=== PATIENT | male | born 1935 | race Caucasian/White ===

== ENCOUNTER 2018-09-23 09:36 | Outpatient (CLI) | payer MEDICARE, SELFPAY ==
--- NOTE | 2018-09-23 09:27 | DI.RAD_ITS ---
SYMPTOM/DIAGNOSIS: KNEE AND SHOULDER PAIN RIGHT SHOULDER: Two views. Comparison is made with 01/21/17. At the glenohumeral joint, there does appear to be narrowing and periarticular spurring present. There are moderate hypertrophic changes seen at the acromioclavicular joint. The bones are intact. No acute fracture or dislocation is seen. There is a tiny osseous density adjacent to the greater tuberosity which may reflect calcific tendinitis. IMPRESSION: Stable, moderately severe degenerative changes of the right shoulder. LEFT KNEE: Two views. Comparison is made with 01/21/17. There is marked narrowing again seen of the medial femorotibial joint space. Periarticular spurring is seen involving all three joint compartments. There is chondrocalcinosis present. The bones are intact. There is a small suprapatellar joint effusion. Vascular calcifications are present in the soft tissues. IMPRESSION: Stable severe osteoarthritis of the left knee. LEFT SHOULDER: Two views. Comparison is made with 01/21/17. At the glenohumeral joint, there is joint space narrowing, sclerosis and spurring present. There is a well corticated osseous density again seen adjacent to the inferior glenohumeral joint. A second well circumscribed density is also seen adjacent to the superior glenohumeral joint which is unchanged. Post surgical changes with resection of the distal clavicle are again noted. No acute fracture or dislocation is seen. The lungs appear stable compared to the prior examination. IMPRESSION: Stable severe degenerative changes of the left shoulder.
== END 2018-09-23 09:56 ==
PROVIDERS: PCP Family Medicine; Referring Provider Family Medicine; Visit Provider Orthopaedic Surgery
DX: M19.011 Primary osteoarthritis, right shoulder; M25.562 Pain in left knee; M17.12 Unilateral primary osteoarthritis, left knee; M19.012 Primary osteoarthritis, left shoulder; I10 Essential (primary) hypertension; E11.9 Type 2 diabetes mellitus without complications; M25.511 Pain in right shoulder; M25.512 Pain in left shoulder
CPT/HCPCS: 20610; 99213; 99214; 73030; 73560; J1040

== ENCOUNTER 2019-12-13 08:15 | Outpatient (CLI) | payer MEDICARE, SELFPAY ==
--- NOTE | 2019-12-13 08:00 | DI.RAD_ITS ---
EXAM: XR KNEE LT 1V CLINICAL HISTORY: eval L knee DJD, preTKA TECHNIQUE: 2D digital imaging was performed. COMPARISON: CR XR knee LT 2V AP,lat from 09/23/2018 CR XR STANDING ALIGNMENT from 12/13/2019 FINDINGS: There is severe narrowing of the left medial femoral tibial joint with varus angulation. A right kne e prosthesis is seen. There is acetabular spurring bilaterally. The joint spaces are well maintaine d. There is a mild leg length discrepancy with the right femoral head projecting superior to the lef t. Ankle joint spaces are well maintained. There is an exostosis of the distal fibula at the distal tibio fibular joint. Vascular calcifications are present. Vascular clips are seen in the medial so ft tissues of the right knee. IMPRESSION: Severe degenerative changes of the medial femoral tibial joint of left knee and mild leg length discr epancy.
== END 2019-12-13 08:35 ==
PROVIDERS: PCP Family Medicine; Referring Provider Family Medicine; Visit Provider Student in an Organized Health Care Education/Training Program
DX: M17.12 Unilateral primary osteoarthritis, left knee (principal); G56.01 Carpal tunnel syndrome, right upper limb; G56.02 Carpal tunnel syndrome, left upper limb; M70.62 Trochanteric bursitis, left hip; Z95.1 Presence of aortocoronary bypass graft
CPT/HCPCS: 99204; 99215; 73560; 77073

== ENCOUNTER → 2019-12-14 13:48 | Outpatient (BNVA) | payer MEDICARE, SELFPAY | PROVIDERS: PCP Family Medicine; Referring Provider Family Medicine; Visit Provider Nurse Practitioner Adult Health | DX: G56.03 Carpal tunnel syndrome, bilateral upper limbs (principal); G56.23 Lesion of ulnar nerve, bilateral upper limbs | CPT/HCPCS: 95910; 99203; 99214 ==

== ENCOUNTER 2020-01-07 07:40 | Outpatient (CLI) | payer MEDICARE, SELFPAY ==
[2020-01-09 18:27] LABS: COVID-19 RT-PCR Result Negative ((See Note))
== END 2020-01-07 08:00 ==
PROVIDERS: PCP Family Medicine; Visit Provider Student in an Organized Health Care Education/Training Program
DX: Z11.59 Encounter for screening for other viral diseases (principal); Z01.818 Encounter for other preprocedural examination
CPT/HCPCS: U0003

== ENCOUNTER → 2020-01-12 08:17 | Outpatient (BNVA) | payer MEDICARE, SELFPAY | PROVIDERS: PCP Family Medicine; Referring Provider Family Medicine; Visit Provider Student in an Organized Health Care Education/Training Program | DX: R69 Illness, unspecified (principal) ==

== ENCOUNTER 2020-01-12 08:23 | Observation (INO) | payer MEDICARE, SELFPAY ==
[2020-01-12] VITALS (12 sets, daily range): BP systolic 136–173; BP diastolic 69–99; PULSE 51–65; RESP 16–19; TEMP 35.7–36.5; O2SAT 94–98
[2020-01-12 09:10] LABS: Anion Gap 11.8 mmol/L (3-11); BUN 23 mg/dL (7-18); CO2 25.2 mmol/L (21.0-32.0); CREATININE 1.42 mg/dL (0.70-1.30); Calcium 9.1 mg/dL (8.5-10.1); Chloride 104 mmol/L (98-107); Estimated GFR 47.61 (mL/min/1.73m2); Glucose 129 mg/dL (74-106); Potassium 4.3 mmol/L (3.5-5.1); Sodium 141 mmol/L (136-145)
[2020-01-12 09:19] LABS: HCT 44.8 % (40.0-50.0); HGB 14.2 g/dL (13.5-17.5); MCH 29.2 pg (27.0-33.0); MCHC 31.7 % (32.0-36.0); MCV 92.2 fL (80-95); Platelet Count 241 10^3/uL (130-400); RBC 4.86 10^6/uL (4.36-5.78); RDW 13.7 % (11.8-14.1); RDW-SD 46.7 fL
[2020-01-12] MEDS: Gabapentin 300 MG CAP PO (09:25)
[2020-01-12] MEDS: Acetaminophen 500 MG TAB 1000 MG PO ×2 (09:25→13:49)
[2020-01-12] MEDS: Lactated Ringers 1,000 ML 80 ML IV ×2 (09:25→15:22)
[2020-01-12] MEDS: Celecoxib 200 MG CAP 400 MG PO (09:25)
[2020-01-12 09:41] LABS: Hemoglobin A1C 6.3 % (3.8-5.6)
[2020-01-12] MEDS: Bupivacaine 0.25% Pres-Free 30 ML VIAL ×2 (09:56→10:49)
[2020-01-12] MEDS: ceFAZolin 2 GM/50 ML BAG IVPB (10:11)
--- NOTE | 2020-01-12 10:13 | W.PM.DS.N ---
Date of service: 01/12/20 Time of Service: 13:48 DS: Diagnosis Discharge Diagnosis (1) Unilateral primary osteoarthritis, left knee: Status: Acute Discharge Plan Disposition Patient Disposition: HOME Condition: Good Discharge Details Reason For Visit: Left Knee DJD Admit Date/Time: 01/12/20 08:23 Admit Provider: Jalen Sullivan Attending Provider: Jalen Sullivan Primary Care Provider: Jeramie Salcedo [facility] Course Hospital Course: Patient was admitted to the medical/surgical floor following the procedure. The surgery was tolerated well without any notable medical, surgical, or anesthetic complications. Mobilization began postoperatively. He was voiding spontaneously. Vitals were stable. Physical therapy worked with the patient and was cleared for discharge home. No acute medical issues. Pain was controlled on oral regimen. Home Meds and New Rx's Prescriptions: New aspirin 81 mg tablet,delayed release (DR/EC) 81 mg PO BID Qty: 60 RF: 0 acetaminophen 500 mg tablet 1,000 mg PO Q8H PRN (Reason: pain) Qty: 90 RF: 3 docusate sodium [Colace] 100 mg capsule 100 mg PO BID PRNQty: 10 RF: 0 gabapentin 300 mg capsule 300 mg PO QHS Qty: 7 RF: 0 oxycodone 5 mg tablet 2.5 - 5 mg PO Q4H Qty: 12 RF: 0 celecoxib 100 mg capsule 100 mg PO BID Qty: 60 RF: 0 Continued donepezil 10 MG tablet 10 mg PO HS RF: 0 cyanocobalamin (vitamin B-12) 1,000 MCG tablet 1,000 mcg PO DAILY RF: 0 oxcarbazepine 300 MG tablet 150 mg PO BID RF: 0 amlodipine 5 MG tablet 5 mg PO DAILY RF: 0 albuterol sulfate 8.5 GM HFA aerosol inhaler 2 puff Inhalation Q6H PRN PRNRF: 0 losartan 100 MG tablet 100 mg PO DAILY RF: 0 metoprolol tartrate 25 MG tablet 25 mg PO BID RF: 0 Spiriva with HandiHaler 18 MCG capsule, w/inhalation device 18 mcg Inhalation DAILY RF: 0 Vitamin D3 (calcium cit-phos) 1 EACH tablet 1 ea PO DAILY RF: 0 tamsulosin 0.4 MG capsule 0.4 mg PO DAILY RF: 0 sertraline 100 mg Tablet 100 mg PO DAILY RF: 0 omeprazole 20 MG capsule,delayed release(DR/EC) 20 mg PO DAILY Qty: 30 RF: 0 Discharge Instructions Additional Instructions: Dr. Sullivan?s Total Knee Discharge Instructions Activity: The most important activity is to walk. You should try to take short walks a few times a day. It is important that when resting you work on keeping the knee straight. Avoid putting a pillow behind the knee as this will encourage flexion. Work on range of motion exercises as provided by Physical Therapy and the preoperative booklet. - Start outpatient physical therapy within 2 weeks. - You should wear the MODESTA hose on both legs for 2 weeks. Dressing: Keep the surgical dressing (Mepilex) in place for at least one week. If you went home on the surgical day, you should remove the ALVIN wrap on the second day and then apply the MODESTA hose. The dressing may get wet after 3 days but avoid soaking the dressing. If it gets wet, just lightly pat dry. Most patient prefer to cover with ClingWrap or Saran Wrap to keep the dressing dry. After the first week, the dressing may be removed and replaced with light gauze and tape or nothing. Medications: - You should take Tylenol and anti-inflammatory Celebrex as your primary pain control medications - You have been prescribed a stronger pain medication Oxycodone for breakthrough pain, take as needed as prescribed. - You should continue your stomach acid reduction agent Omeprazole to help reduce stomach acid and reflux. - You will be taking Aspirin 81mg twice a day for DVT prevention unless instructed otherwise. - You also have Gabapentin to take at night for restlessness and nerve pain. - If you have constipation you should take Colace or Miralax (both [id number]). It takes most people 3-4 days to have a bowel movement. Follow-up: 2 weeks. You should also call physical therapy to work on scheduling outpatient therapy sessions which can begin at 2 weeks. If you have any acute concerns or questions, please do not hesitate to contact the office at [phone]. You may contact Dr. Sullivan with any questions after hours through the hospital at [phone] or on his cell phone at [phone]. Stand Alone Forms: Nursing Discharge Form Referrals: Jalen Sullivan MD [ [facility] STAFF PHYSICIAN] - 01/28/20 11:30 am Activity:: Activity as Tolerated Equipment/Supplies:: Walker Diet:: As Tolerated Discharge Orders Discharge Orders: Discharge Order (Routine); Ordered 01/12/20 Ordered By: Jalen Sullivan DS: Summary Status at Discharge Functional status at discharge: uses cane/walker Overall status at discharge: patient is progressing back to baseline Mental Status: mental status grossly normal Speech and Movement: speech and movement normal Mood: congruent mood Affect: normal affect Exam Psych Mental Status: mental status grossly normal Speech and Movement: speech and movement normal Mood: congruent mood Affect: normal affect DS: Data Vitals/I&O Vitals and I&O: Vital Signs Temperature 36.5 C 01/12/20 09:03 Pulse 51 L 01/12/20 09:03 Pulse Rhythm Regular 01/12/20 09:03 Respiratory Rate 16 01/12/20 09:03 Respiratory Effort 01/12/20 09:03 Respiratory Depth Normal 01/12/20 09:03 Respiratory Pattern Normal 01/12/20 09:03 Blood Pressure 138/73 01/12/20 09:03 Pulse Oximetry 98 01/12/20 09:03 Oxygen Delivery Method Room Air 01/12/20 09:03 Oxygen Flow Rate 0 01/12/20 09:03 Pain Level 0 01/12/20 09:03 Intake & Output 01/11/20 01/11/20 01/12/20 11:59 23:59 11:59 Weight 83.915 kg 83.2 kg Data Completed and Pending Labs on day of discharge: Labs from last 24 hours 01/12/20 01/12/20 01/12/20 08:55 08:55 08:55 WBC 7.40 RBC 4.86 Hgb 14.2 Hct 44.8 MCV 92.2 MCH 29.2 MCHC 31.7 L RDW 13.7 Plt Count 241 MPV 9.0 Sodium 141 Potassium 4.3 Chloride 104 Carbon Dioxide 25.2 Anion Gap 11.8 H BUN 23 H Creatinine 1.42 H Estimated GFR/1.73 m2 47.61 Glucose 129 H Hemoglobin A1c 6.3 H Calcium 9.1 PFSH Medical History Ascending aortic aneurysm (Acute) Benign hypertension CAD (coronary artery disease) (Chronic) COPD (chronic obstructive pulmonary disease) (Chronic) Cubital tunnel syndrome, bilateral (Acute) Diabetes mellitus Per pt. states he is not diabetic anymore Gastroesophageal reflux disease Hyperlipidemia Left carpal tunnel syndrome (Acute) Right carpal tunnel syndrome (Acute) Trochanteric bursitis, left hip (Acute) Surgical History Aortocoronary bypass status (Chronic) CABG ~2002 Arthroplasty of knee (05/24/85) right knee Excision, Distal Clavicle (02/06/09) right Social History Smoking/Tobacco Use Status: Former Tobacco Use Drug use: Never
[2020-01-12] MEDS: Ketorolac 30 MG/ML VIAL (10:49)
[2020-01-12] MEDS: Normal Saline 20 ML VIAL (10:51)
--- NOTE | 2020-01-12 12:11 | W.PM.OP ---
Date of service: 01/12/20 Time of Service: 12:11 Operative Note Operative Note DATE OF PROCEDURE: 01/12/20 PRE-OP DIAGNOSIS: Left Knee Osteoarthritis POST-OP DIAGNOSIS: same PROCEDURE: Left Total Knee Replacement SURGEON: Jalen Sullivan VETERINARY SURGEON: Eva Jaeger ANESTHESIA: regional and spinal ESTIMATED BLOOD LOSS: 50 PATHOLOGY: none sent TOURNIQUET TIME: 35 COMPLICATIONS: None Patient was transported to: PACU Patient's condition: stable Implants: 1. Depuy Attune Posterior Stabilized Femoral Component, Size 7 2. Depuy Attune Rotating Platform Tibial Component, Size 7 3. Depuy Attune 7x7 Rotating, Stabilized Poly 4. Depuy Attune Patellar Component, Size 38 Indications: I have seen Faustino in clinic for symptoms of RIGHT knee arthritis, confirmed with radiographic findings. He has exhausted nonoperative methods and was having significant limitations in daily function and desired better function and less pain. I discussed the technical details of a knee replacement. I explained the risks of the procedure to include, but not limited to, bleeding, infection, pain, stiffness, fracture, damage to nerves and vessels, damage to muscles and tendons, loosening, need for repeat procedure, blood clot and cardiopulmonary demise. Despite these risks, Faustino elected to proceed. Findings: There was significant signs of arthritis throughout the knee. Procedure Description: Faustino was greeted in the preoperative holding area where the correct side was identified and marked. The consent was reviewed with the patient and signed. The history and physical was updated. All questions were answered. Preoperative mediacations were administered: Acetaminophen 1000mg, Celebrex 400mg, and Gabapentin 300mg. An adductor canal block was then administered by the anesthesia team in the PACU. Faustino was taken back to the operating room. A spinal anesthestic was then administered. The patient was placed into the supine position on the operating room table. A nonsterile tourniquet was placed high onto the leg but only used for cementing. Posts were placed for positioning during the procedure. All bony prominences were well padded. Prophylactic antibiotics in the form of Cefazolin were administered. 1g of Tranxemic Acid was given intravenously within 30 minutes of incision. The right leg was then prepped with Chloraprep and draped in a standard fashion with impervious stockinette. A second prep with Chloraprep was performed prior to application of Iodine impregnated skin protection. A timeout to confirm correct identity, side and site, procedure, allergies, anesthesia, and medical concerns was performed. With the knee in some flexion, a midline incision was made overlying the knee. Full thickness skin flaps were raised once the extensor mechanism was encountered. These were raised medially and laterally. Any bleeding was controlled with electrocautery. Once the extensor mechanism was fully exposed, a medial parapatellar arthrotomy was performed in a flexed position. All bleeding from the arthrotomy and the geniculate arteries was coagulated. A medial subperiosteal peel was performed with electrocautery to the midcoronal plane. Due to the significant varus deformity the entire medial tibial plateau was exposed. The fat pad was removed while keeping the patellar tendon protected. The anterior distal femur synovium was removed for later visualization. The ACL and PCL were resected and the anterior horn of the lateral meniscus was transected. The knee was then flexed with the patella everted. Large osteophytes from the tibia were removed. Large osteophytes from the femur were removed. Using a step drill, and based on preoperative templating, the femoral canal was entered. This was done with a step drill without any difficulty. The intramedullary distal femoral cut guide was inserted, set to a 5 degree valgus cut and 9mm cut thickness. The distal femoral cut guide was then held in position and pinned. With the soft tissues protected, the distal cut was performed. This was passed over a few times to ensure a planar cut. I then turned attention to the tibia. The extramedullary guide was placed onto the leg. The distal aspect was slid medial to adjust for position of center of ankle and stay in line with shaft of the tibia. Approximately 3-5 degrees of posterior slope was kept in the proximal cutting guide. The center of the guide was aligned with the PCL. The stylus was used to assess cut thickness. The medial side, most involved side, was set for a 2mm cut. This was then held in position and pinned into place with 2 additional pins and a cross pin for stability. The medial and lateral collateral ligaments were protected and the cut was performed. With this completed, it was assessed and noted to be of appropriate dimensions. The guide was removed. A spacer block was inserted and the knee was brought into extension. The 6mm spacer block provided full extension, without hyperextension and with stability of both the medial and lateral collateral ligaments was assessed. The pins from the femur and the tibia were then removed. The distal femur was then sized. The anterior stylus was placed onto the lateral ridge of the anterior femur. This indicated a size 7 femur. The external rotation of the guide was adjusted to 3 degrees to match the epicondylar axis, perpendicular to Jasper?s line. The 4-in-1 cutting guide was the placed. The posterior medial femur cut was evaluated and appeared of good thickness. The spacer block was inserted underneath the cutting guide and stability was confirmed in 90 degrees of flexion. An radha wing was used to confirm appropriate position of the anterior cut to avoid notching. This cutting guide was ensured to be flush on the cut surface and then pinned into place with headed pins. While protecting the soft tissues, quad tendon, and collateral ligaments, the anterior and posterior cuts were performed with a saw. The central two pins were removed and the posterior and anterior chamfers were cut next. The notch-cutting guide was placed. This was pinned to lateralize the femoral component as much as possible while keeping it flush on the cut surface. This was then pinned into position. A reciprocating saw was used to make the notch cut. A rasp smoothed the cut surfaces. A trial posterior stabilized femoral component was then inserted, impacted down to the cut surfaces, and the lug holes were drilled. A provisional trial tibial component was placed and the knee was brought through range of motion. There was noted to be excellent extension and flexion. There was no significant instability. The patella was tracking without thumbs. The tibial cut surface was fully exposed. The medial and lateral menisci were removed. The tibia was then sized as a 7. The tibia had been previously marked during trialing to correspond to the center of the tibial component to help with rotation. The trial was aligned to this vea, approximately rotated to the medial 1/3rd of the tibial tubercle. The trial was pinned into place. The tibia was prepared with a reamer and a keel punch. The knee was then brought into extension and the patella was measured as 26mm. Using the patellar clamp and cut guide, this was resected to a flat surface with at least 13mm of thickness remaining. The size 38 patella fit the best. This was oriented and then clamped into position. The lugs were drilled. The trial components were removed. The final components, except for the polyethylene were opened on the back table. The periosteal and capsular tissues, especially posteriorly, around the knee were then systematically injected with a periarticular cocktail consisting of 50cc 0.25% Marcaine, 30mg Ketorolac, 20cc of Exparal and 50cc of injectable saline. The tourniquet was then inflated to 275mmHg. The knee was thoroughly irrigated with a pulse lavage and dried. On the back table, with the implants opened, the cement was mixed. 2 batches of antibiotic laden cement were prepared with vacuum assistance. After the cement was ready a small amount was placed on to the back side of the tibial component at the keel. A small amount was placed onto the posterior flange of the femur. Cement was manual pressurized and impregnated into the cut surface of the tibia. The tibial component was then inserted into the cut surface and impacted into position. Excess cement was removed and the component was reimpacted. Again, excess cement was removed and our attention was then turned to the femur. The femoral cut surface was once again dried and cement was manually impacted into the cut surface. The femoral component was lined with the lug holes and impacted. Excess cement was removed. It was ensured to be down against the cut surface. The trial polyethylene was then inserted and the leg was brought out into full extension for the duration of the cement curing process, approximately 15min. Cement was lastly manually impacted into the cut surface of the patella and the patellar button was clamped into position and held. During this process attention was turned to the gutters of the knee and for all interfaces for any excess cement. While the cement was hardening, the knee was irrigated with Irrisept chlorhexadine solution. This was allowed to sit in the knee for 3 minutes. After the cement had finally cured, approximately 15min, the clamp was removed from the patella and the knee was taken through range of motion. A size 7mm polyethylene component provided the best range of motion and stability with less than 2mm gapping with medial and lateral stress and full extension without significant hyperextension. The patella was tracking with a no-thumbs technique. The trial poly was removed and once again the knee was checked for any loose, excess, or errant cement. The poly component was then inserted and impacted into position after cleaning and drying the tibial tray. The capsule was then reapproximated with a No. 1 Vicryl at multiple locations. The capsule was finally closed with a No. 2 Stratafix, barbed suture. The tourniquet was then released and the arthrotomy appeared watertight without significant bleeding. The second dosing of 1g TXA was started. Deep tissues were then reapproximated with 0 Vicryl and 2-0 Vicryl. The skin was closed with a running 3-0 Monocryl in a subcuticular fashion. This was reinforced with skin glue. A Mepilex silver dressing was applied along with a [id number] ALVIN wrap. A CryoCuff was applied. Faustino was transferred to the hospital bed without difficulty an suffering no apparent complication. He has a good prognosis. Physical therapy will start today and without restrictions, weight-bearing as tolerated. Aspirin 81mg BID will be used for DVT prophylaxis.
[2020-01-12] MEDS: Ondansetron 4 MG/2 ML VIAL IVP (15:21)
[2020-01-12] MEDS: Normal Saline Flush 10 ML SYR IV (15:22)
[2020-01-12] MEDS: ceFAZolin 1 GM/50 ML BAG IVPB (15:23)
--- NOTE | 2020-01-12 15:37 | IN_ITS ---
Date of service: 01/12/20 Time of Service: 14:28 PT Notes Visit Reasons: Left Knee DJD Physical Therapy Inpatient Initial Evaluation Date: 01/12/2020 Referring Doctor: Jalen Sullivan MD PT Orders: PT CONSULT: Status post orthosis Precautions: Fall. Standard. WBAT on left LE. Patient Profile/Admitting Diagnosis: Jarvis is an 84-year-old male with primary unilateral osteoarthritis of the left knee status post left total knee arthroplasty on postop day 0. PMHX: Medical History Ascending aortic aneurysm (Acute) Benign hypertension CAD (coronary artery disease) (Chronic) COPD (chronic obstructive pulmonary disease) (Chronic) Cubital tunnel syndrome, bilateral (Acute) Diabetes mellitus Gastroesophageal reflux disease Hyperlipidemia Left carpal tunnel syndrome (Acute) Right carpal tunnel syndrome (Acute) Trochanteric bursitis, left hip (Acute) Surgical History Aortocoronary bypass status (Chronic) CABG ~2002 Arthroplasty of knee (05/24/85) right knee Excision, Distal Clavicle (02/06/09) left Social History/Home Situation: Lives with in a private home with a ramp to enter that leads porch and 1 step up into the mud room. [place] in [place] and [place] in [place] every year. Independent with all aspects of ADLs without an assistive ambulatory device nor adaptive equipment. Equipment Owned/DME: FWW, SPC Subjective: Jarvis reports being queasy and vomited x 4 upon sitting up at edge of bed. Agreeable to resting for half an hour or so prior to continuing with mobility assessment. Babita present throughout session. Both are hoping for patient to go home as soon as medically cleared. Jarvis felt significantly better for the second visit and is agreeable to complete mobility evaluation. Objective: General Observation: Dayne wraps to left LE. Cryo/Cuff to left knee. IV in right UE. TEDS on right leg. Mental Status: Alert and oriented x4 Pain: 0/10 ROM: Right Upper Extremity: Shoulder Flexion WFL. Shoulder abduction WFL. Elbow flexion WFL. Wrist flexion WFL. Opening and closing of hand WFL. Left Upper Extremity: Shoulder Flexion WFL. Shoulder abduction WFL. Elbow flexion WFL. Wrist flexion WFL. Opening and closing of hand WFL. Right Lower Extremity: Hip flexion WFL. Hip abduction WFL. Knee flexion WFL. Knee extension -20 degrees. Ankle dorsiflexion WFL. Ankle plantarflexion WFL. Left Lower Extremity: Hip flexion WFL. Hip abduction WFL. Knee flexion -22 to 75 degrees. Knee extension -22 degrees. Ankle dorsiflexion WFL. Ankle plantarflexion WFL. Strength: Right Upper Extremity: Shoulder flexors 5/5. Shoulder abductors 5/5. Elbow flexors 5/5. Elbow extensors 5/5. Accounting Auditor strong. Left Upper Extremity: Shoulder flexors 5/5. Shoulder abductors 5/5. Elbow flexors 5/5. Elbow extensors 5/5. Accounting Auditor strong. Right Lower Extremity: Hip flexors 5/5. Hip abductors 5/5. Knee flexors 4/5. Knee extensors 3-/5. Ankle dorsiflexors 5/5. Ankle plantarflexors 5/5. Left Lower Extremity:Hip flexors 5/5. Hip abductors 5/5. Knee flexors 3-/5. Knee extensors 3-/5. Ankle dorsiflexors 5/5. Ankle plantarflexors 5/5. Sensation: Intact as to pain and pressure on bilateral lower extremities. Bed Mobility/Transfers: Supine to sit standby assist Sit to supine standby assist Sit to stand contact guard assist, needs FWW Stand to sit contact guard assist, needs FWW Bed to chair contact guard assist, needs FWW Chair to bed contact guard assist, needs FWW THERA EX: Jarvis was able to complete seated level exercises consisting of LAQs x10, seated hip flexion x10, and ankle pumps x10 with no undue difficulty nor increased pain. Gait: 400 feet + 200 feet using FWW with SBA, step through heel-toe gait pattern with no increase in pain nor nausea/dizziness. Up and down six 4-inch steps with SBA while holding onto B rails. Balance: Static Sitting: Normal Dynamic Sitting: Normal fair Static Standing: Dynamic Standing: Fair Special Tests: Mobility Limitations Standardized Measure [facility] AM-PAC 6 clicks Basic Mobility Inpatient Short Form: Raw Score: 21 CMS Score: 29% deficit Informed Consent/Education: Patient instructed in purpose of PT consult and plan of care. Assessment: Jarvis demonstrates functional mobility decline requiring the use of a front wheeled walker for all mobility ADL performance, difficulty with walking, and impairment in balance due to postoperative status. Jarvis is an 84-year-old male with primary unilateral osteoarthritis of the left knee status post left total knee arthroplasty on postop day 0. Patient presents with clinical signs and symptoms consistent with current/admitting diagnoses that have resulted to mobility limitations, gait instability, generalized weakness, and impairment of motor control as demonstrated by the following impairment level findings: 1. Decreased strength to left knee major muscle groups 2. Impaired sitting/standing balance 3. Impaired activity tolerance 4. Limitation of joint range of motion in B knees Impairments are contributing to the following functional limitations: 1. Inability to safely ambulate without assistive device and physical assistance 2. Increase completion time for mobility ADL performance 3. Increased fall risk 4. Inability to negotiate steps alone safely Patient is assessed as a 22768 moderate complexity based on the following: History: 84-year-old male with impairment level findings, functional limitations, and past medical history as indicated above Examination: Demonstrable impairment in strength, balance, and mobility level with underlying impairments and functional limitations as documented above Presentation:Evolving Decision Makin moderate complexity Goals: Goals X 1 more treatment session 1. Supine-Sit supervision NOT MET 2. Sit-Supine supervision NOT MET 3. Sit-Stand supervision NOT MET 4. Stand-Sit supervision NOT MET 5. Bed-Chair supervision NOT MET 6. Chair-Bed supervision NOT MET 7. Supervision gait on level surface with use of least restrictive device for at least 300 feet without report of pain nor dyspnea NOT MET 8. Supervision stair negotiation while holding onto bilateral rails for at least 10 steps without report of pain nor dyspnea NOT MET 9. Supervision with home exercise program NOT MET 10. Good static and dynamic standing balance/tolerance NOT MET Plan of Care/Treatment Plan: N/A. PT eval and 1 treatment session only. DISCHARGE RECOMMENDATIONS: Home when medically cleared by orthopedic surgeon. May benefit from outpatient PT services in order to regain independent premorbid level. TREATMENT CODE/TIME: 98925 x 27 minutes, 85743 x 33 minutes beginning at 2:28 PM and 3:37 PM. Thank you for the opportunity to participate in the care of this patient. Joyce Brennan PT, DPT, CLT [facility] [place], [place]
== END 2020-01-12 18:12 | disposition home or self-care (01) ==
LOC: PDS 12:48 → MS 12:49
PROVIDERS: Admitting Provider Student in an Organized Health Care Education/Training Program; PCP Family Medicine; Visit Provider Student in an Organized Health Care Education/Training Program
PROC: 0SRD0J9 Replacement of Left Knee Joint with Synthetic Substitute, Cemented, Open Approach (ICD-10-PCS; CPT 27447; principal; 2020-01-12 10:15)
DX: M17.12 Unilateral primary osteoarthritis, left knee (principal); I25.2 Old myocardial infarction; Z95.1 Presence of aortocoronary bypass graft; E11.9 Type 2 diabetes mellitus without complications; I71.2 Thoracic aortic aneurysm, without rupture; Z87.891 Personal history of nicotine dependence; Z79.84 Long term (current) use of oral hypoglycemic drugs
CPT/HCPCS: 27447; C1776; 80048; 85027; 97162; 97530; NC; 83036; G0378; J0690; J1885; J2001; J2405

== ENCOUNTER 2020-01-28 11:57 | Outpatient (CLI) | payer MEDICARE, SELFPAY ==
--- NOTE | 2020-01-28 11:30 | DI.RAD_ITS ---
EXAM: XR STANDING ALIGNMENT AND XR KNEE LT 1V CLINICAL HISTORY: 1ST POST OP TECHNIQUE: 2D digital imaging was performed. Standing AP views were performed from the pelvis throu gh the ankles. COMPARISON: CR XR STANDING ALIGNMENT from 12/13/2019 CR XR KNEE LT 1V from 01/28/2020 FINDINGS: Patient is now status post left total knee prosthesis. The components appear well aligned. Some ant erior soft tissue swelling remains present previously existing right knee prosthesis is unchanged. T he ankle joint spaces and hip joint spaces are well maintained. There is no significant leg length d iscrepancy at the level of the femoral heads.
== END 2020-01-28 12:17 ==
PROVIDERS: PCP Family Medicine; Referring Provider Family Medicine; Visit Provider Student in an Organized Health Care Education/Training Program
DX: Z96.652 Presence of left artificial knee joint (principal); Z47.1 Aftercare following joint replacement surgery; J44.9 Chronic obstructive pulmonary disease, unspecified
CPT/HCPCS: 73560; 77073

== ENCOUNTER 2020-02-25 10:43 | Outpatient (CLI) | payer MEDICARE, SELFPAY ==
[2020-02-26 20:25] LABS: COVID-19 RT-PCR Result NEGATIVE (Negative)
== END 2020-02-25 11:03 ==
PROVIDERS: PCP Family Medicine; Visit Provider Student in an Organized Health Care Education/Training Program
DX: Z11.59 Encounter for screening for other viral diseases (principal); Z01.818 Encounter for other preprocedural examination
CPT/HCPCS: U0003

== ENCOUNTER 2020-02-29 07:43 | Day surgery (SDC) | payer MEDICARE, SELFPAY ==
[2020-02-29] VITALS (7 sets, daily range): BP systolic 94–153; BP diastolic 53–75; PULSE 56–62; RESP 14–18; TEMP 36.5–36.6; O2SAT 96–100
[2020-02-29] MEDS: Lactated Ringers 1,000 ML 80 ML IV (08:27)
[2020-02-29] MEDS: Gabapentin 300 MG CAP PO (08:27)
[2020-02-29] MEDS: Acetaminophen 500 MG TAB 1000 MG PO (08:27)
[2020-02-29] MEDS: Celecoxib 200 MG CAP 400 MG PO (08:27)
--- NOTE | 2020-02-29 09:34 | W.PM.DSUDISC ---
Discharge Plan Disposition Patient Disposition: HOME Condition: Good Discharge Details Reason For Visit: RUPTURE QUAD TENDON Attending Provider: Jalen Sullivan Primary Care Provider: Jeramie Salcedo Home Meds and New Rx's Prescriptions: Continued donepezil 10 MG tablet 10 mg PO HS RF: 0 cyanocobalamin (vitamin B-12) 1,000 MCG tablet 1,000 mcg PO DAILY RF: 0 oxcarbazepine 300 MG tablet 150 mg PO BID RF: 0 amlodipine 5 MG tablet 5 mg PO DAILY RF: 0 albuterol sulfate 8.5 GM HFA aerosol inhaler 2 puff Inhalation Q6H PRN PRNRF: 0 losartan 100 MG tablet 100 mg PO DAILY RF: 0 metoprolol tartrate 25 MG tablet 25 mg PO BID RF: 0 Spiriva with HandiHaler 18 MCG capsule, w/inhalation device 18 mcg Inhalation DAILY RF: 0 Vitamin D3 (calcium cit-phos) 1 EACH tablet 1 ea PO DAILY RF: 0 sertraline 100 mg Tablet 100 mg PO DAILY RF: 0 omeprazole 20 MG capsule,delayed release(DR/EC) 20 mg PO DAILY Qty: 30 RF: 0 calcium 500 mg Tablet 500 mg PO DAILY RF: 0 magnesium 250 mg Tablet 250 mg PO DAILY RF: 0 vitamin E 1,000 unit Tablet 1 tab PO DAILY RF: 0 cholecalciferol (vitamin D3) [Vitamin D3] 10 mcg (400 unit) Capsule 10 mcg PO DAILY RF: 0 cinnamon bark [Cinnamon] 500 mg Capsule 500 mg PO DAILY RF: 0 aspirin 81 mg tablet,delayed release (DR/EC) 81 mg PO BID Qty: 60 RF: 0 acetaminophen 500 mg tablet 1,000 mg PO Q8H PRN (Reason: pain) Qty: 90 RF: 3 meloxicam 7.5 mg tablet 7.5 mg PO BID Qty: 60 RF: 0 Changed tramadol 50 mg tablet 50 mg PO Q4H PRN PRN (Reason: pain) Qty: 12 RF: 0 Discontinued tamsulosin 0.4 MG capsule 0.4 mg PO DAILY RF: 0 ibuprofen 200 mg Tablet 400 mg PO Q6H PRNRF: 0 Discharge Instructions Additional Instructions: Dr. Sullivan?s Discharge Instructions Activity: You have been placed in a knee immobilizer to support the deep tissue repair. You may mobilize with this in place but use a walker or crutchs at all times when up and walking. You should try to take short walks a few times a day. It is important that when resting you work on keeping the knee straight. However, when you are resting, you may loosen or remove the knee immobilizer BUT KEEP IT STRAIGHT. Always have the immobilizer on when you are moving the leg or walking. Avoid putting a pillow behind the knee as this will encourage flexion. Exercise and motion work will start after your first post-op visit. Dressing: Keep the surgical dressing in place for at least one week. If you went home on the surgical day, you should remove the ALVIN wrap on the second day and then apply the MODESTA hose. The dressing may get wet after 3 days but avoid soaking the dressing. If it gets wet, just lightly pat dry. Most patient prefer to cover with ClingWrap or Saran Wrap to keep the dressing dry. After the first week, the dressing may be removed and replaced with light gauze and tape or nothing. Medications: - You should take Tylenol and anti-inflammatory Meloxicam as your primary pain control medications - You have been prescribed a stronger pain medication Tramadol for breakthrough pain, take as needed as prescribed. - You will be taking Aspirin 81mg twice a day for DVT prevention unless instructed otherwise. - If you have constipation you should take Colace or Miralax (both [id number]). It takes most people 3-4 days to have a bowel movement. Follow-up: 2 weeks. If you plan on staying local beyond the first post-op visit, then let Dr. Sullivan's office know and we will set up local physical therapy to begin after the first post-op visit. If you have any acute concerns or questions, please do not hesitate to contact the office at [phone]. You may contact Dr. Sullivan with any questions after hours through the hospital at [phone] or on his cell phone at [phone]. Referrals: Jalen Sullivan MD [ [facility] STAFF PHYSICIAN] - Activity:: In Knee Immobilizer Diet:: As Tolerated Discharge Orders Discharge Orders: Discharge Order (Routine); Ordered 02/29/20 Ordered By: Jalen Sullivan DS: Diagnosis Discharge Diagnosis (1) Rupture of left quadriceps tendon: Status: Acute
[2020-02-29] MEDS: ceFAZolin 2 GM/50 ML BAG IVPB (09:46)
[2020-02-29] MEDS: Bupivacaine 0.25% Pres-Free 30 ML VIAL (10:16)
[2020-02-29] MEDS: Ketorolac 30 MG/ML VIAL (10:18)
--- NOTE | 2020-02-29 16:28 | PT.INNT ---
Date of service: 02/29/20 Time of Service: 16:30 PT Notes Visit Reasons: RUPTURE QUAD TENDON Referral sent in this morning but per clarification by orthopedic surgeon this afternoon, patient did not need to come up to med surg unit for PT evaluation as patient was meant to stay in the PACU for same day discharge. Patient is scheduled to resume outpatient PT services after the first post-op visit as ordered by orthopedic surgeon. Thank you for the opportunity to participate in the care of this patient. Joyce Brennan PT, DPT, CLT [facility] [place], [place]
--- NOTE | 2020-02-29 20:16 | W.PM.OP ---
Date of service: 02/29/20 Time of Service: 10:17 Operative Note Operative Note DATE OF PROCEDURE: 02/29/20 PRE-OP DIAGNOSIS: Left Arthrotomy Rupture POST-OP DIAGNOSIS: same PROCEDURE: Open Repair of Arthrotomy and Quadriceps Complex SURGEON: Jalen Sullivan FLIGHT CONTROL TOWER OPERATOR: Esvin Jaeger ANESTHESIA: MEDARDO ESTIMATED BLOOD LOSS: 20 TOURNIQUET TIME: 0 COMPLICATIONS: None Patient was transported to: PACU Patient's condition: stable Indications: Faustino is an 84-year-old who underwent a left knee replacement. He fell approximately 2 weeks ago stepping awkwardly into a hole. Since that time he is noted weakness and multiple falls. He was seen in the clinic and diagnosed with an arthrotomy rupture with obvious defect and inability to straight leg raise against resistance. Given these findings I recommended operative fixation of the arthrotomy rupture. I reviewed the risk of the procedure to include bleeding, infection, pain, stiffness, recurrence, need for repeat procedures. Despite these risk, he elects to proceed. Findings: Complete dehiscence of the arthrotomy all the way to the tibia in all the way extending into the quadriceps closure with a small transverse component into the vastus lateralis. The tissue was quite mobile and I was able to perform a repair with the knee at 90 degrees of flexion. Procedure Description: Faustino was greeted in the preoperative holding area. His identity was confirmed and the correct site was identified and marked. The consent was reviewed the patient and signed. The patient was taken back to the operating room where a general anesthetic was administered. The left knee was prepped with ChloraPrep and draped in a standard fashion. Prophylactic antibiotics in the form of cefazolin were administered. A timeout was performed for safe surgery. A second prep was applied to the wound prior to proceed with the surgery after the drapes were in place. The previous decision was incised and extended proximally. Once a skin was incised there was an obvious defect encountered were joint fluid and blood was evacuated. The extensor mechanism was identified in the plane between the retinaculum, patella, and vastus lateralis, medialis, and quadriceps tendon, was developed. This provided better evaluation. At this time it was seen the arthrotomy was open from the level of the tibia all the way through the quadriceps repair and there is even a transverse component extending into the lateralis. Using a rondure I debrided the edges of the arthrotomy to get back to the healthier retinacular and capsular and tendinous tissue. 3 L of normal saline were rinsed through the wound to evacuate all clots and to fully clean the area. The extra synovium or scar tissue or fibrosis was also removed sharply. Once we had good inventory of the tissue and hand we were able to attempt a repair. The incision of the skin was done in 90 degrees and at 9 degrees and also evaluated the mobility of the deeper tissues. Surprisingly, the tissue was quite mobile. I was able to reapproximate all the vastus medialis against the quadriceps and against the patella. Using #2 FiberWire and then performed repair. This was done with multiple interrupted sutures of the high-strength FiberWire material. The transverse component going into the vastus lateralis was also reapproximated with a #2-0 FiberWire. A few interrupted #1 Vicryl's were also placed in anywhere there is seen to be some gapping. This was tested and seems stable at about 110 degrees of flexion and was tied at 90 degrees of flexion. The wound was thoroughly irrigated with Irrisept chlorhexidine solution. Combination of bupivacaine Exparel and ketorolac was injected into the soft tissues around the knee. The deep simultaneous layer was closed with 0 Vicryl and a 2-0 Monocryl. The skin was closed with a running 3-0 Monocryl followed by Mepilex silver dressing. A foot to thigh Dayne wrap was applied followed by knee immobilizer with the knee locked in full extension. At the end of the case all counts are correct. He is transferred back to the PACU in stable condition.
== END 2020-02-29 13:35 | disposition home or self-care (01) ==
PROVIDERS: PCP Family Medicine; Visit Provider Student in an Organized Health Care Education/Training Program
PROC: (CPT 27385; principal; 2020-02-29 10:15)
DX: S76.112A Strain of left quadriceps muscle, fascia and tendon, initial encounter (principal); T81.32XA Disruption of internal operation (surgical) wound, not elsewhere classified, initial encounter; W17.2XXA Fall into hole, initial encounter; Y93.H2 Activity, gardening and landscaping; Y92.007 Garden or yard of unspecified non-institutional (private) residence as the place of occurrence of the external cause; Z96.652 Presence of left artificial knee joint
CPT/HCPCS: 27385; 76942; J0690; J1885; J2001; J2704; L1830

== ENCOUNTER → 2020-03-16 08:57 | Outpatient (BNVA) | payer MEDICARE, SELFPAY | PROVIDERS: PCP Family Medicine; Referring Provider Family Medicine; Visit Provider Student in an Organized Health Care Education/Training Program | DX: Z47.1 Aftercare following joint replacement surgery (principal); Z96.652 Presence of left artificial knee joint; S76.112D Strain of left quadriceps muscle, fascia and tendon, subsequent encounter; X58.XXXD Exposure to other specified factors, subsequent encounter; J44.9 Chronic obstructive pulmonary disease, unspecified; Z87.891 Personal history of nicotine dependence ==